=== PATIENT | male | born 1955 | race Two or more races ===

== ENCOUNTER 2019-08-27 13:30 | Outpatient (CLI) | payer OTHER ==
[~2019-08-27] VITALS: Ht 170.2 cm; Wt 79.4 kg
== END 2019-08-27 16:17 | disposition home or self-care (01) ==
LOC: OFIC 805 13:30
DX: H60.8X1 Other otitis externa, right ear (principal); H61.23 Impacted cerumen, bilateral; H91.8X3 Other specified hearing loss, bilateral

== ENCOUNTER 2019-09-10 08:36 | Outpatient (CLI) | payer OTHER ==
[~2019-09-10] VITALS: Ht 152.4 cm; Wt 79.4 kg
== END 2019-09-10 10:58 | disposition home or self-care (01) ==
LOC: OFIC 805 08:36
DX: H90.3 Sensorineural hearing loss, bilateral (principal); H61.23 Impacted cerumen, bilateral
CPT/HCPCS: 69210; 99213; G0463